=== PATIENT | male | born 1980 | race African-American/Black ===

== ENCOUNTER 2017-05-24 11:10 | Emergency (ER) | payer SELFPAY ==
[~2017-05-24] VITALS: Ht 185.4 cm; Wt 74.8 kg
[2017-05-24 11:14] VITALS: BP 130/88
== END 2017-05-24 12:44 ==
LOC: ER 11:12
DX: Z02.89 Encounter for other administrative examinations (principal); Z93.3 Colostomy status
CPT/HCPCS: A4606; Z7610